=== PATIENT | female | born 1965 | race Asian ===

== ENCOUNTER 2024-01-01 10:35 | Day surgery (SDC) | payer OTHER ==
[~2024-01-01] VITALS: Ht 160 cm; Wt 51.7 kg
[2024-01-01] MEDS ORDERED: fentaNYL citrate 0.05 MG/ML VIAL ONE (13:57)
[2024-01-01] MEDS ORDERED: LIDOCAINE 2% 100 MG/5 ML UJET TP ONE ×2 (13:57→14:55)
[2024-01-01] MEDS: fentaNYL citrate 0.05 MG/ML VIAL IVP ONE (13:59)
== END 2024-01-01 15:05 | disposition home or self-care (01) ==
LOC: MDS 10:35 → MMU 13:06 → MDS 15:05
PROVIDERS: ATTEND Internal Medicine Gastroenterology
DX: Z12.11 Encounter for screening for malignant neoplasm of colon (principal); K63.5 Polyp of colon; I10 Essential (primary) hypertension; Z98.51 Tubal ligation status; Z79.899 Other long term (current) drug therapy
CPT/HCPCS: 45385; J3010